=== PATIENT | male | born 1990 ===

== ENCOUNTER 2020-01-27 17:08 | Emergency (ER) | payer SELFPAY | END 2020-01-27 17:49 | disposition home or self-care (01) | LOC: ERS 17:08 | DX: S01.01XD Laceration without foreign body of scalp, subsequent encounter (principal); F17.210 Nicotine dependence, cigarettes, uncomplicated; F41.9 Anxiety disorder, unspecified; Z79.899 Other long term (current) drug therapy; W21.00XD Struck by hit or thrown ball, unspecified type, subsequent encounter ==